=== PATIENT | male | born 1975 | race African-American/Black ===

== ENCOUNTER 2018-06-10 10:21 | Emergency (ER) | payer OTHER ==
[~2018-06-10] VITALS: Ht 175.3 cm; Wt 122.5 kg
[2018-06-10] MEDS ORDERED: ASPIR 8181 MG PO (10:30)
[2018-06-10] MEDS ORDERED: LIDOCAINE VISC100 ML TOP (10:51)
[2018-06-10] MEDS ORDERED: CORTISPORIN OTI10 M2 OTIC (10:51)
[2018-06-10 11:31] VITALS: BP 142/75
== END 2018-06-10 11:32 | disposition home or self-care (01) ==
LOC: ER 10:21
DX: H60.92 Unspecified otitis externa, left ear (principal); I48.91 Unspecified atrial fibrillation